=== PATIENT | male | born 1980 | race Caucasian/White ===

== ENCOUNTER 2017-04-07 15:50 | Emergency (ER) | payer OTHER ==
[~2017-04-07] VITALS: Ht 172.7 cm; Wt 65.8 kg
[~2017-04-07 15:50] MED LIST: ANAPROX DS550 MG PO; ANTIBIOTIC PO; ANUSOL HC30 GM PO; SEPTRA DS 800 M1 TAB PO; VICODIN 5/500 505 MG PO
[2017-04-07] MEDS ORDERED: ROBAXIN500 M1 PO (16:09)
[2017-04-07] MEDS ORDERED: ANAPROX DS550 MG PO (16:09)
== END 2017-04-07 16:25 | disposition home or self-care (01) ==
LOC: ED 15:50
DX: S39.012A Strain of muscle, fascia and tendon of lower back, initial encounter (principal); F17.200 Nicotine dependence, unspecified, uncomplicated; X50.3XXA Overexertion from repetitive movements, initial encounter; Y93.89 Activity, other specified; Y92.89 Other specified places as the place of occurrence of the external cause; Y99.8 Other external cause status

== ENCOUNTER 2019-09-29 10:03 | Emergency (ER) | payer SELFPAY ==
[~2019-09-29] VITALS: Ht 172.7 cm; Wt 68.0 kg
[~2019-09-29 10:03] MED LIST changes: +ROBAXIN500 M1 PO
[2019-09-29] MEDS ORDERED: ROBAXIN-750750 MG PO (10:34)
[2019-09-29] MEDS ORDERED: MEDROL DOSEPAK4 MG PO (10:34)
[2019-09-29] MEDS ORDERED: NAPROSYN500 MG PO (10:34)
== END 2019-09-29 11:15 | disposition home or self-care (01) ==
LOC: ED 10:03
DX: S46.912A Strain of unspecified muscle, fascia and tendon at shoulder and upper arm level, left arm, initial encounter (principal); Z79.899 Other long term (current) drug therapy; X58.XXXA Exposure to other specified factors, initial encounter; Y93.89 Activity, other specified; Y92.89 Other specified places as the place of occurrence of the external cause; Y99.8 Other external cause status

== ENCOUNTER 2019-12-06 14:25 | Emergency (ER) | payer SELFPAY ==
[~2019-12-06] VITALS: Ht 172.7 cm; Wt 68.0 kg
[~2019-12-06 14:25] MED LIST changes: +MEDROL DOSEPAK4 MG PO; +NAPROSYN500 MG PO; +ROBAXIN-750750 MG PO
[2019-12-06 16:12] LABS: BASO % 0.2 % (0.0-1.0); EOS # 0.1 10*3/uL (0.0-0.4); EOS % 1.2 % (1.0-4.0); HEMATOCRIT 46.1 % (42.0-52.0); LYMPH # 1.3 10*3/uL (1.3-4.4); LYMPH % 12.5 % (27.0-41.0); MEAN CELL VOLUME 88.8 fl (80.0-94.0); MEAN CORPUSCULAR HGB 28.9 pg (27.0-31.0); MEAN CORPUSCULAR HGB CONC 32.5 g/dl (33.0-37.0); MEAN PLATELET VOLUME 9.9 fl (9.6-12.3); MONO # 1.5 10*3/uL (0.1-1.0); MONO % 14.4 % (3.0-9.0); NEUT # 7.4 10*3/uL (2.3-7.9); NEUT % 71.5 % (47.0-73.0); PLATELET COUNT AUTOMATED 236 10*3/uL (130-400); RED BLOOD COUNT 5.19 10*6/uL (4.50-5.90); RED CELL DISTRI WIDTH 12.5 % (0-14.5); WHITE BLOOD COUNT 10.4 10*3/uL (4.8-10.8)
[2019-12-06 16:23] LABS: ACT PARTIAL THROMBO TIME 32.9 SECONDS (20.0-32.1)
[2019-12-06 16:25] LABS: BUN 12 mg/dl (7-24); CHLORIDE 103 mmol/L (98-107); CREATININE 1.02 mg/dL (0.70-1.30); POTASSIUM 4.5 mmol/L (3.5-5.1); SODIUM 136 mmol/L (136-145)
[2019-12-06] MEDS ORDERED: PREDNISONE20 M1 PO (20:05)
[2019-12-06] MEDS ORDERED: AUGMENTIN 875875 MG PO (20:05)
== END 2019-12-06 20:20 | disposition home or self-care (01) ==
LOC: ED 14:25
PROVIDERS: Emergency Medicine
DX: J36 Peritonsillar abscess (principal)